=== PATIENT | male | born 1955 | race Caucasian/White ===

== ENCOUNTER → 2019-04-02 | Outpatient (CLI) | payer BC ==
[~2019-04-02] MED LIST: FINA5TAB4 PO; IOHEXOL 180 MG/ML 10 ML VIAL. ONE; LIDOCAINE 1% PF 2 ML VIAL. ONE; TADA5TAB PO; TAMS0.4C97 PO; methylPREDNISolone ACETATE 40 MG/ML VIAL. ONE; methylPREDNISolone ACETATE 80 MG/ML VIAL. ONE
--- NOTE | 2019-04-02 16:23 | RAD ---
EXAM: Left knee, 3 views. HISTORY: Pain. COMPARISON: None. FINDINGS: 3 views left knee are obtained. There is no fracture, dislocation or subluxation. There are corticated ossicles along the superior aspect of the anterior tibial tubercle, likely due to the sequela of prior [place]-Schlatter disease. There is no joint effusion. IMPRESSION: No acute osseous finding. Electronically signed by: Linnette Carrasquillo MD (04/02/2019 4:20 PM) [place] [id number]
--- NOTE | 2019-04-03 07:41 | PAIN ---
DATE OF SERVICE: 04/02/2019 INITIAL CONSULTATION FOR PAIN CLINIC CHIEF COMPLAINT: 1. Low back and left lower extremity pain. 2. Left knee joint pain. HISTORY OF PRESENT ILLNESS: The patient is a 63-year-old male who presents with history of pain in the low back, left lower extremity, starting about 03/12. The patient reports he has had some low back pain in the past before and actually had a lumbar epidural steroid injection at [facility] about a year ago or so, which did very well, but on 03/12, he was sitting at a table at a restaurant and went to move and he had significant pain in his leg and especially in his left knee in the medial compartment. The patient reports no injury to his back or his leg or his knee and it feels worse in the morning, now feels very full and tender in the back side of the knee, but also in the medial aspect with walking and standing. The patient is walking with a significant limp, reports the pain is increasing also in the low back, radiating to posterior gluteus, posterior thigh and then into the knee as well as some into the calf on the left side posteriorly. The patient reports right side has only some mild pain in the low back, but not in the leg itself. The patient reports it is a constant pain, it is becoming sharp, stabbing, throbbing, shooting, radiating into the leg, worse with weightbearing, standing, walking, better with sitting down or resting. The patient reports it awakens him from sleep about 2-3 times at night. When he rolls over, he gets pain in the leg and the knee itself. The patient reports it does not affect his bowel or bladder control, but does affect his ability to walk. He is using a cane occasionally and does not have it with him today, however. The patient did have a consultation with neurosurgeon regarding his lumbar spine who was recommending no surgery and that was in 2018, it was initial pain in the low back and more in the right leg at that time. The patient reports he has taken Tylenol as well as hydrocodone, both of which helped, but only mildly with each one of those medications. The patient reports his disability rating from 0-10, 10 being the worst, is at 9 with family and home responsibilities, 10 with recreation and sexual behavior, 8 with social activity and occupation, 7 with self-care and life support activities. The patient reports no loss of motor function, but significant pain with activity. Again, better with sitting or lying down, but much worse with walking, standing and some significant fatigability in the left leg with walking as well. PAST MEDICAL HISTORY: Significant for hearing loss, arthritis, benign prostatic hypertrophy, chewing tobacco. PREVIOUS SURGERY: Include wisdom teeth extraction and lithotripsy for kidney stone. CURRENT MEDICATIONS: Include Cialis, Flomax and finasteride. ALLERGIES: The patient has no known drug allergies. FAMILY HISTORY: Significant for COPD and heart disease. SOCIAL HISTORY: The patient does not smoke. Does chew tobacco, quit in 2018, however. Drinks about 2-3 alcoholic drinks socially on weekends only. Does not use any illegal, illicit or recreational drugs. He is , lives with his spouse, lives locally in [place], [place]. REVIEW OF SYSTEMS: The patient's review of systems is positive for those items mentioned in history of present illness. All systems reviewed and otherwise negative. It is complete, full and well documented on the patient's chart. PHYSICAL EXAMINATION: VITAL SIGNS: The patient's blood pressure is 150/103, pulse is 97, respirations 16, temperature 97.9 degrees Fahrenheit, height is 5 feet 9 inches and weight is 235 pounds. GENERAL: The patient is awake, alert, oriented, appropriate, very pleasant demeanor. HEENT: Shows normocephalic, atraumatic. Extraocular movements are intact and symmetrical. Oral cavity: Mucous membranes moist and pink. Dentition is intact. NECK: Shows anterior throat supple without palpable lymphadenopathy noted. Swallow reflex symmetrical. CHEST: Shows normal on inspection. Breath sounds are clear bilaterally. HEART: Shows S1, S2 clear. No murmurs auscultated. ABDOMEN: Soft, obese, nontender, nondistended. BACK: Shows spine grossly in the midline. Normal appearing cervical lordotic curvature, thoracic kyphotic curvature and lumbar lordotic curvature. Lumbar paraspinous muscle shows symmetrical on inspection, with palpation shows some moderate tenderness diffusely, but only diffusely without significant radiation. EXTREMITIES: Lower extremities show deep tendon reflexes at 2+ in the patellar, 1+ tendo-calcaneus tendons are equal. Motor exam is strong with 5/5 dorsiflexion, extension on the left. Quadriceps and hamstring flexion approximately 4 on a scale of 5 with significant pain reported, especially with quadriceps flexion and resistance on the left side only. Straight leg raise noted to be mildly positive on the left at about 40 degrees, but negative on the right. Gaenslen's and Papito's maneuvers are negative bilaterally. The patient is able to stand, has difficulty trying to stand on his toes or put all his weight on his left leg, it is significantly painful. Ambulates with a significant antalgic gait favoring his left lower extremity significantly, again not using any assistive devices to walk today, but does have a cane uses by his report at times. SKIN: Shows warm and dry, good turgor. No edema. No sores, rashes or bruising throughout. IMPRESSION: 1. This is a 63-year-old male with approximate 1-month history of increasing pain in left lower extremity and left knee. 2. MRI scan of lumbar spine as noted. 3. Arthritis. 4. Benign prostatic hypertrophy. 5. Hearing loss. PLAN: Options were discussed with the patient including conservative medical managements, continued physical therapies ____ interventional techniques. He has done well with these in the past. We discussed a lumbar epidural steroid injection using description as well as anatomical models to describe the procedure. Risks were discussed including but not limited to bleeding, infection, possibility of epidural hematoma and subsequent neurological compromise, dural puncture, headaches, spinal cord and/or nerve damage, side effects of steroid medication and poor results regarding pain control. The patient understands and wished to proceed. The patient will return to clinic in approximately 2 weeks for followup. He was counseled as to return appointment, activity level and side effects to be aware of. DIAGNOSIS: Lumbar radiculopathy with lumbar degenerative disk disease. PROCEDURE: Lumbar epidural steroid injection, translaminar approach at the L5-S1 level using C-arm fluoroscopic guidance under sterile prep and drape using local anesthetic. MEDICATION INJECTED: A total of 120 mg Depo-Medrol plus 10 mL of preservative-free normal saline and 2 mL of contrast. CONDITION AT DISCHARGE: Stable. The patient tolerated the procedure well, had no complications. We will order plain films of the left knee to be performed later today, as the patient has had no diagnostic workup on the left knee pain thus far and we will wait for those results. KATHRYN ADEN MD DR: DIONI/shanika JOB#: [id number] / [id number] ESETBAN [place]amilla
== END ==
LOC: PNCL 14:14
PROVIDERS: ATTEND Anesthesiology
DX: M51.16 Intervertebral disc disorders with radiculopathy, lumbar region (principal); N40.0 Benign prostatic hyperplasia without lower urinary tract symptoms; Z87.891 Personal history of nicotine dependence; Z87.39 Personal history of other diseases of the musculoskeletal system and connective tissue
CPT/HCPCS: 62323; 73562; J1030; J1040; Q9965

== ENCOUNTER → 2019-04-18 | Outpatient (CLI) | payer BC ==
[~2019-04-18] MED LIST changes: +BUPIVACAINE MPF 0.25% 10 ML VIAL. ONE; -LIDOCAINE 1% PF 2 ML VIAL. ONE
--- NOTE | 2019-04-18 15:09 | PAIN ---
DATE OF SERVICE: 04/18/2019 PROGRESS NOTE FOR PAIN CLINIC DIAGNOSES: 1. Lumbar radiculopathy with lumbar degenerative disk disease. 2. Left knee joint pain. HISTORY OF PRESENT ILLNESS: The patient is a 63-year-old male who returns for followup status post lumbar epidural steroid injection x 1. The patient reports about 60% improvement with the low back, doing much better, but still some pain in the left knee. The patient reports it is a 9 on a scale of 10 in the knee on the last week at its worst, 8 on average, 7 at its least and is an 8 today. The patient reports it is aching, sharp, tight, shooting, stabbing, worse with walking, standing, changing positions, putting all his weight on his left side, such as climbing a stair or a step. The patient reports when he is sitting down, he feels very comfortable. When he goes to get up, it is significantly painful. The patient reports his low back is doing much better, though he is very pleased with his progress there, it does not awaken him from sleep at night but his knee is. PHYSICAL EXAMINATION: VITAL SIGNS: The patient's blood pressure 139/98, pulse 83, respirations 16, temperature 97.9 degrees Fahrenheit, height is 5 feet 9 inches and weight is 234 pounds. GENERAL: The patient is awake, alert, oriented, appropriate, very pleasant demeanor. HEENT: Shows normocephalic, atraumatic. Extraocular movements are intact and symmetrical. Oral Cavity: Mucous membranes moist and pink. Dentition is intact. NECK: Shows anterior throat supple without palpable lymphadenopathy noted. Swallow reflex is symmetrical. CHEST: Shows normal on inspection. Breath sounds clear bilaterally. HEART: Shows S1, S2 clear. ABDOMEN: Obese but soft, nontender, nondistended. BACK: Shows spine grossly in the midline. Lumbar paraspinous muscle shows symmetrical with inspection, normal lordotic curvature, with palpation shows some mild tenderness, one very diffusely mild in the low lumbar distribution without radiation. The patient has full rotational motion of lumbar spine, both laterally as well as extension and flexion. EXTREMITIES: The patient's lower extremities show deep tendon reflexes at 2+ in the patellar, 1+ tendo-calcaneus tendons. Motor exam is approximately 4 on a scale of 5 with left quadriceps and 5/5, otherwise. The patient's left knee shows some significant tenderness over the medial collateral ligament with palpation as well as over the medial aspect of the joint and just medial to the patella, lateral aspect is nontender. The patient has good range of motion, however, both actively and passively without ratcheting without crepitus and negative shelf sign on the knee on the left, right side is negative as well. Options were discussed with the patient. The patient's old chart was reviewed as his current medication regimen updated. Current review of systems updated today as well. We will proceed with a left intra-articular knee joint injection today with fluoroscopic guidance. Risks were again discussed including, but not limited to bleeding, infection, possibility of intravascular injection sequelae, spread of local anesthetic and numbness, side effects of steroid medication and poor results regarding pain control. The patient understands and wished to proceed. The patient will return to clinic in approximately 2 weeks for followup. He was counseled on return appointment, activity level and side effects to be aware of. DIAGNOSIS: Left knee joint pain with primary osteoarthritis, left knee joint. PROCEDURE: Left intraarticular knee joint injection using C-arm fluoroscopic guidance under sterile prep and drape using local anesthetic. MEDICATION INJECTED: A total of 3 mL of 0.25% bupivacaine, 80 mg Depo-Medrol and 1.5 mL of contrast. CONDITION AT DISCHARGE: Stable. The patient tolerated procedure well, had no complications. KATHRYN ADEN MD DR: DIONI/shanika JOB#: [id number] / [id number]
== END | disposition home or self-care (01) ==
LOC: PNCL 10:06
PROVIDERS: ATTEND Anesthesiology
DX: M17.12 Unilateral primary osteoarthritis, left knee (principal); M51.16 Intervertebral disc disorders with radiculopathy, lumbar region; G61.82 Multifocal motor neuropathy
CPT/HCPCS: 20610; 77002; J1040; J3490; Q9965; J1030